=== PATIENT | male | born 1980 | race Caucasian/White ===

== ENCOUNTER 2020-06-15 19:08 | Emergency (ER) | payer OTHER ==
[~2020-06-15] VITALS: Ht 180.3 cm; Wt 90.7 kg
[2020-06-15] MEDS ORDERED: PROZAC10 MG PO (19:27)
--- NOTE | 2020-06-16 08:09 | EKG ---
[facility] [address] [facility] [place], [place] [address] Signed Suspect unspecified pacemaker failure Sinus rhythm with premature atrial complexes Left axis deviation Right bundle branch block Abnormal ECG No previous ECGs available Confirmed by WERNER GIRON MD ([id number]) on 06/16/2020 8:08:51 AM Electronically Signed By: WERNER GIRON MD 06/16/20808 PATIENT NAME: JEANETTE MCCLELLAN Electrocardiogram DATE OF : 76 PHYSICIAN: WERNER GIRON MD REPORT #: [id number] REPORT IS CONFIDENTIAL AND NOT TO BE RELEASED WITHOUT AUTHORIZATION
--- NOTE | 2020-06-16 08:09 | EKG ---
[facility] [address] [facility] [place] [address] Signed Normal sinus rhythm Possible Left atrial enlargement Right bundle branch block Left anterior fascicular block Bifascicular block Abnormal ECG When compared with ECG of 15-JUN-2020 19:13, (Unconfirmed) premature atrial complexes are no longer present Confirmed by WERNER GIRON MD ([id number] on 06/16/2020 8:09:07 AM Electronically Signed By: WERNER GIRON MD 06/16/20 0809 PATIENT NAME: JEANETTE MCCLELLAN Electrocardiogram DATE OF : 76 PHYSICIAN: WERNER GIRON MD REPORT #: [id number] REPORT IS CONFIDENTIAL AND NOT TO BE RELEASED WITHOUT AUTHORIZATION
== END 2020-06-15 23:21 | disposition home or self-care (01) ==
LOC: ED 19:08
DX: R07.89 Other chest pain (principal); I25.2 Old myocardial infarction; F17.200 Nicotine dependence, unspecified, uncomplicated; Z79.899 Other long term (current) drug therapy
CPT/HCPCS: 71045; 80053; 83735; 84484; 85025; 85379; 85610; 85730; 93005; 93010; 96365; 99285-25; J3411; J7030